=== PATIENT | male | born 1960 | race Caucasian/White ===

== ENCOUNTER 2017-08-10 08:54 | Day surgery (SDC) | payer BC ==
[2017-08-10] MEDS ORDERED: Lactated Ringer's 500 ML IV ONE (09:29)
[2017-08-10] MEDS ORDERED: Propofol 10 mg/ml Inj (20 ML) ONE (10:35)
[2017-08-10 11:32] VITALS: TEMP 96.9; O2SAT 100
[2017-08-10 11:49] VITALS: BP 117/72; PULSE 60; RESP 16
== END 2017-08-10 14:10 | disposition home or self-care (01) ==
LOC: H.ENDO 08:54
PROVIDERS: ATTEND Internal Medicine Gastroenterology
DX: D64.9 Anemia, unspecified (principal); G47.30 Sleep apnea, unspecified; K64.2 Third degree hemorrhoids; K31.89 Other diseases of stomach and duodenum
CPT/HCPCS: 43239; 45378; 88305; 88342; J2001; J2704; J7120